=== PATIENT | female | born 1945 | race Caucasian/White ===

== ENCOUNTER 2018-09-25 06:14 | Emergency (ER) | payer MEDICARE, OTHER ==
[~2018-09-25] VITALS: Ht 177.8 cm; Wt 100.9 kg
[~2018-09-25 06:14] MED LIST: FOLIC ACID; GLYBURIDE; METFORMIN; OMEPRAZOLE; PIOGLITAZONE; TIZA2CAP PO; [UNRECOGNIZED DRUG - CODE] BU
[2018-09-25 06:20] VITALS: Ht 177.8 cm; Wt 100.9 kg
[2018-09-25] MEDS ORDERED: HYDROmorphONE 1 MG/ML SYG IV STA (06:24)
[2018-09-25] MEDS ORDERED: ONDANSETRON 4 MG INJ IV STA (06:24)
[2018-09-25] MEDS ORDERED: SOD CHLORIDE 0.9% 500 ML IV STA (06:24)
[2018-09-25] MEDS ORDERED: IBUPROFEN 800 MG TAB PO ONE (06:30)
[2018-09-25] MEDS ORDERED: CYCLOBENZAPRINE 10 MG TAB PO ONE (06:30)
[2018-09-25] MEDS ORDERED: CYCL10TA7 PO (08:46)
[2018-09-25 09:20] VITALS: BP 125/76; PULSE 59; RESP 18
--- NOTE | 2018-09-25 16:29 | ERD ---
ER Documentation Chief Complaint Chief Complaint [id number],from home,R knee pain & spasm HPI This is a 73-year-old female presented to the emergency department sudden onset of severe right knee pain and spasming of her right knee. The patient indicates this is happened multiple times in the past. Up to go to the bathroom when she felt a sudden popping sensation in her right knee. She was unable to stand up due to the severe pain. She has a history of arthritis. 9 1 was called and it helped to assist the patient to the gurney and indicated there is no obvious bony deformity. The patient stated the pain in her right knee was 10 out of 10. She did not experience any calf tenderness. She had no spasms in her calf. She has no shortness of breath at rest or exertion. She denies any prolonged immobilization. ROS All systems reviewed and are negative except as per history of present illness. Medications Home Meds Active Scripts Cyclobenzaprine Hcl* (Cyclobenzaprine Hcl*) 10 Mg Tablet, 10 MG PO TID PRN for MUSCLE SPASMS, #15 TAB Prov:MCKENNA SANTOS MD 09/25/18 Reported Medications [glyburide,actos,metformin,folic acid,prilosec] No Conflict Check 02/17/12 Nabumetone (Relafen) 500 Mg Tablet, 1000 MG BU bid 02/17/12 Tizanidine Hcl* (Zanaflex*) 2 Mg Capsule, 2 MG PO tid 02/17/12 Allergies Allergies: Coded Allergies: Jflimmw-Dpr-Ytl Reductase Inhibitor (Verified Allergy, Unknown, 09/25/18) codeine (Verified Allergy, Unknown, 09/25/18) PMhx/Soc History of Surgery: Yes (tonsilectomy,makayla,ovary removed) Anesthesia Reaction: Yes Hx Neurological Disorder: No Hx Respiratory Disorders: No Hx Cardiac Disorders: Yes (htn) Hx Psychiatric Problems: No Hx Miscellaneous Medical Probl: No Hx Alcohol Use: No Hx Substance Use: No Hx Tobacco Use: No Smoking Status: Never smoker Physical Exam Vitals Vital Signs Date Temp Pulse Resp B/P (MAP) Pulse Ox O2 O2 Flow FiO2 Time Delivery Rate 09/25/18 59 18 125/76 96 Room Air 09:20 (92) 09/25/18 64 18 143/60 94 Room Air 08:18 (87) 09/25/18 99.5 68 18 175/90 96 06:20 (118) Physical Exam Constitutional:Well-developed. Well-nourished. Respiratory: Not using accessory muscles of respiration.Lungs were clear to auscultation bilaterally. No rhonchi. No rales. No wheezing. Cardiovascular: Regular rate regular rhythm.No murmurs. No rubs were appreciated.S1, S2 normal. Distal pulses are palpable 2+ bilaterally Muscle skeletal: Patient had tenderness of the right patella. Valgus and varus stress test in the right knee was unable to be obtained as the patient was in a significant amount discomfort and experiencing pain with passive extension of the right knee. No calf tenderness negative Homans sign on the right. No asymmetrical swelling of the bilateral lower extremities. Patient unable to bear weight due to severity of pain. No tenderness over the right fibular head. No tenderness or obvious bony deformities of the right femur. Skin: No petechia, no purpura. No lesions on the palms or the soles of the feet. No maculopapular rash. NEURO: Patient was alert, awake, orientated x3.No facial droop. Gait not observed due to severity of pain.Speech had regular rate and rhythm. No focal neurological deficits. Results 24 hrs Current Medications Medications Dose Sig/Felix Start Time Status Last (Trade) Ordered Route PRN Stop Time Admin Dose Reason Admin Sodium 500 ml @ Q1H STAT 09/25/18 DC 09/25/18 Chloride 500 mls/hr IV 06:24 06:43 09/25/18 07:23 1 mg ONCE STAT 09/25/18 DC 09/25/18 Hydromorphone IV 06:24 06:45 HCl 09/25/18 06:30 (Dilaudid) Ondansetron 4 mg ONCE STAT 09/25/18 DC 09/25/18 HCl (Zofran IV 06:24 06:45 Inj) 09/25/18 06:30 10 mg ONCE ONCE 09/25/18 DC 09/25/18 Cyclobenzapri PO 06:30 06:45 ne HCl 09/25/18 06:31 (Flexeril) Ibuprofen 800 mg ONCE ONCE 09/25/18 DC 09/25/18 (Motrin) PO 06:30 06:45 09/25/18 06:31 Procedures/MDM This is a 73-year-old female that presented to the emergency department with right knee pain. Utilizing the auto ankle knee rules radiographic imaging was obtained. There is no evidence of fractures this was reviewed by myself. However the patient did have moderate tricompartmental joint arthrosis. The patient was given IV Dilaudid and Toradol for analgesia control. She was also given a muscle relaxant of Flexeril. Afterwards the patient's pain is significantly improved. I was able to perform valgus and varus stress testing without any difficulty. She was now able to ambulate. The patient no physical exam findings to suggest arterial or venous insufficiency. There is no signs of necrotizing fasciitis. I did feel the patient be safely discharged home but indicated she would benefit from getting an outpatient MRI of her knee. The patient was discharged home in fair condition. They were instructed to return to the emergency department at any time if there was any worsening of their condition. The patient stated they would follow up with their PCP in the next 24-48 hours to initiate a suitable medication regimen under the care of their PCP as well as to allow their PCP to monitor any drug reactions. The patient was discharged home with prescriptions after they gave informed consent to the new medication. They were also fully informed by myself on the adverse effects and adverse drug interactions in order to provide adequate safeguards to prevent possible adverse reactions to medications. Departure Diagnosis: Primary Impression: Knee pain Chronicity: acute Laterality: right Qualified Codes: M25.561 - Pain in right knee Additional Impression: Muscle spasm Condition: Fair Patient Instructions: Knee Sprain, Muscle Spasm Referrals: MIRZA WORTHINGTON MD (PCP) MCKENNA SANTOS MD Sep 25, 2018 16:26
== END 2018-09-25 09:20 | disposition home or self-care (01) ==
LOC: E/R 06:14
DX: M25.561 Pain in right knee (principal); M62.831 Muscle spasm of calf; I10 Essential (primary) hypertension
CPT/HCPCS: 73562; 96374; 96375; 99284; J1170; J2405; J7040

== ENCOUNTER 2018-10-22 21:16 | Emergency (ER) | payer MEDICARE, OTHER ==
[~2018-10-22] VITALS: Wt 100.0 kg
[~2018-10-22 21:16] MED LIST changes: +CYCL10TA7 PO
[2018-10-22] MEDS ORDERED: LORAZEPAM 2 MG INJ IM ONE (23:00)
[2018-10-22] MEDS ORDERED: CYCLOBENZAPRINE 10 MG TAB PO ONE (23:00)
[2018-10-22] MEDS ORDERED: IBUPROFEN 800 MG TAB PO ONE (23:00)
[2018-10-23] MEDS ORDERED: ONDANSETRON 4 MG INJ IV STA (00:15)
[2018-10-23] MEDS ORDERED: morphine 4 MG/ML VIAL IV STA (00:15)
[2018-10-23] MEDS ORDERED: morphine 4 MG/ML VIAL IM STA ×2 (00:27→01:28)
[2018-10-23] MEDS ORDERED: ONDANSETRON (ODT) 4 MG TAB ODT STA (00:27)
[2018-10-23] MEDS ORDERED: CYCL10TA7 PO (02:11)
--- NOTE | 2018-10-23 02:30 | ERD ---
ER Documentation Chief Complaint Chief Complaint r knee pain from knee giving out no deformity , onset 1400 today. HPI This is a very pleasant 73-year-old female with history of diabetes presents with sudden onset right knee pain since this morning. Patient states she was standing from a sitting position when she heard a snap in her right knee. There was no fall. Patient states she has been unable to fully extend her knee since then. She has full flexion. She denies any lower extremity numbness or tingling. Denies any other trauma. She was seen here a few months ago for similar complaints and diagnosed with muscle spasm. She states the symptoms are very similar. She states she is scheduled for an outpatient CT/MRI of her right knee next week. She has been taking the cyclobenzaprine that was prescribed to her previous visit with no relief. ROS All systems reviewed and are negative except as per history of present illness. Medications Home Meds Active Scripts Cyclobenzaprine Hcl* (Cyclobenzaprine Hcl*) 10 Mg Tablet, 10 MG PO TID PRN for MUSCLE SPASMS, #15 TAB Prov:TITO MARTINEZ PA-C 10/23/18 Reported Medications [glyburide,actos,metformin,folic acid,prilosec] No Conflict Check 02/17/12 Nabumetone (Relafen) 500 Mg Tablet, 1000 MG BU bid 02/17/12 Tizanidine Hcl* (Zanaflex*) 2 Mg Capsule, 2 MG PO tid 02/17/12 Allergies Allergies: Coded Allergies: Djddryr-Tbh-Qbo Reductase Inhibitor (Verified Allergy, Unknown, 09/25/18) codeine (Verified Allergy, Unknown, 09/25/18) PMhx/Soc History of Surgery: Yes (tonsilectomy,makayla,ovary removed) Anesthesia Reaction: Yes Hx Neurological Disorder: No Hx Respiratory Disorders: No Hx Cardiac Disorders: Yes (htn) Hx Psychiatric Problems: No Hx Miscellaneous Medical Probl: No Hx Alcohol Use: No Hx Substance Use: No Hx Tobacco Use: No Smoking Status: Never smoker Physical Exam Vitals Vital Signs Date Temp Pulse Resp B/P (MAP) Pulse Ox O2 O2 Flow FiO2 Time Delivery Rate 10/23/18 98.5 70 17 135/66 94 Room Air 00:51 (89) 10/22/18 98.0 84 20 170/81 98 21:17 (110) Physical Exam Const: No acute distress. + Sitting in wheelchair Head: Atraumatic Eyes: Normal Conjunctiva ENT: Normal External Ears, Nose and Mouth. Skin: No petechiae or rashes Ext: Lower Extremity - right Skin: No laceration Compartments: Soft Motor: + Unable to extend knee Sensation: Intact to light touch FDWS/MF/LF/P surfaces. Bones: + TTP to superior aspect of knee Joints: No effusion or laxity Pulses/Perfusion: 2+ DP, Capillary refill < 2 seconds Neur: Awake and alert Psych: Normal Mood and Affect Results 24 hrs Current Medications Medications Dose Sig/Felix Start Time Status Last (Trade) Ordered Route PRN Stop Time Admin Dose Reason Admin Ibuprofen 800 mg ONCE ONCE 10/22/18 DC 10/22/18 (Motrin) PO 23:00 22:56 10/22/18 23:01 20 mg ONCE ONCE 10/22/18 DC 10/22/18 Cyclobenzapri PO 23:00 22:57 ne HCl 10/22/18 23:01 (Flexeril) Lorazepam 0.5 mg ONCE ONCE 10/22/18 DC 10/22/18 (Ativan) IM 23:00 22:55 10/22/18 23:01 Morphine 4 mg ONCE STAT 10/23/18 DC Sulfate IV 00:15 (morphine) 10/23/18 00:29 Ondansetron 4 mg ONCE STAT 10/23/18 DC HCl (Zofran IV 00:15 Inj) 10/23/18 00:29 Morphine 4 mg ONCE STAT 10/23/18 DC 10/23/18 Sulfate IM 00:27 00:45 (morphine) 10/23/18 00:29 Ondansetron 4 mg ONCE STAT 10/23/18 DC 10/23/18 HCl (Zofran ODT 00:27 00:44 Odt) 10/23/18 00:29 Morphine 4 mg ONCE STAT 10/23/18 DC 10/23/18 Sulfate IM 01:28 01:53 (morphine) 10/23/18 01:29 Procedures/MDM LABS & DIAGNOSTIC IMAGING: PROCEDURE: XR Knee. CLINICAL INDICATION: Pain and limited range of motion. The patient cannot extend in the right knee TECHNIQUE: AP, oblique and cross-table lateral views of the right knee were obtained. COMPARISON: 09/25/2018 FINDINGS: Mineralization is within normal limits. No fracture or osseous lesion is identified. There is moderate tricompartmental osteoarthrosis. No joint effusion is seen and the soft tissues are unremarkable. IMPRESSION: Moderate tricompartmental osteoarthrosis without acute abnormality of the right knee or interval change from 09/25/2018. ED COURSE: The patient was given Morphine x 2, Zofran, Ibuprofen, Baclofen The medication was well tolerated and the patient had market improvement in symptoms. The patient remained stable throughout ED course. MEDICAL DECISION MAKING: This a very pleasant 73-year-old female presents with complaints of atraumatic right knee pain. Her x-rays negative for any acute fracture dislocation. X-ray does note significant osteoarthritis of the right knee, which could also be causing some of her pain. Other differentials include muscle spasm or muscle strain. There is no evidence of septic arthritis or osteomyelitis. Patient was seen here a few months ago with similar symptoms requiring IV Dilaudid for pain control. Patient was given morphine and muscle relaxants here. She had full range of motion of her knee afterwards. She remained neurovascularly intact on physical exam, I have low suspicion for neurovascular injury. She was told to keep her appointment for CT of her knee next week. She was discharged home with muscle relaxants, no further pain medications are prescribed. Strict return precautions were discussed. PRESCRIPTIONS: Cyclobenzaprine SPECIALIST FOLLOW UP RECOMMENDED: None Patient has been advised to follow up with primary care in 1-2 days. Blood Pressure Assessment: Patient's blood pressure was elevated (>120/80) but appears stable without evidence of hypertension emergency or urgency. The patie nt was counseled about the risks of hypertension and urged to pursue outpatient monitoring and therapy within a week with their primary care physician. Departure Diagnosis: Primary Impression: Muscle spasm Additional Impression: Osteoarthritis Osteoarthritis location: knee Osteoarthritis type: unspecified Laterality: right Qualified Codes: M17.11 - Unilateral primary osteoarthritis, right knee Condition: Stable Patient Instructions: Muscle Spasm, Osteoarthritis: Coping with Pain Additional Instructions: Take baclofen 3 times a day for the next 3 days. Also recommend warm heat pads to help relax the muscles around her knee as well. Follow-up for your CT as scheduled. Return here for any new or worsening symptoms. Thank you for being so patient with this today. TITO MARTINEZ PA-C Oct 23, 2018 02:26
[2018-10-23 02:31] VITALS: BP 117/63; PULSE 62; RESP 18
== END 2018-10-23 02:31 | disposition home or self-care (01) ==
LOC: FTE 21:16
DX: M62.838 Other muscle spasm (principal); M17.11 Unilateral primary osteoarthritis, right knee; I10 Essential (primary) hypertension; E11.9 Type 2 diabetes mellitus without complications; Z79.84 Long term (current) use of oral hypoglycemic drugs
CPT/HCPCS: 73562; 96372; 99284; J2060; J2270

== ENCOUNTER → 2018-10-26 | Outpatient (CLI) | payer MEDICARE, OTHER ==
[~2018-10-26] MED LIST changes: +HYDR-4011 PO; +IBUP-1542 PO; +TRAM50TA2 PO
== END | disposition home or self-care (01) ==
LOC: C/S 09:55
PROVIDERS: ATTEND Internal Medicine
DX: M54.5 Low back pain (principal); M54.16 Radiculopathy, lumbar region
CPT/HCPCS: 72131

== ENCOUNTER 2018-10-28 18:50 | Emergency (ER) | payer MEDICARE, OTHER ==
[~2018-10-28] VITALS: Ht 177.8 cm; Wt 100.9 kg
[~2018-10-28 18:50] MED LIST changes: -HYDR-4011 PO; -HYDROmorphONE 1 MG/ML SYG IV STA; -IBUP-1542 PO; -KETOROLAC 15 MG INJ IV STA; -ONDANSETRON 4 MG INJ IV STA; -SOD CHLORIDE 0.9% 1,000 ML IV STA; -TRAM50TA2 PO
[2018-10-28 19:07] VITALS: Ht 177.8 cm; Wt 100.9 kg
[2018-10-28] MEDS ORDERED: HYDROmorphONE 1 MG/ML SYG IV STA (21:37)
[2018-10-28] MEDS ORDERED: ONDANSETRON 4 MG INJ IV STA (21:37)
[2018-10-28] MEDS ORDERED: SOD CHLORIDE 0.9% 1,000 ML IV STA (21:37)
[2018-10-28] MEDS ORDERED: DIAZEPAM 5 MG TAB PO ONE (22:00)
[2018-10-28 23:06] VITALS: BP 127/60; PULSE 60; RESP 23
--- NOTE | 2018-10-28 23:19 | ERD ---
ER Documentation Chief Complaint Chief Complaint R leg spasms despite Morphine today;might need muscle relaxant as per pt HPI This is a 73-year-old female that has recurrent spasms of her right lower extremity. She indicates that she was seen earlier today in the emergency department and treated for spasms of the right lower extremity. Her primary care physician Dr. Christy did further evaluate the patient's symptoms by obtaining a CT scan of the thoracic and lumbar spine to rule out for radiculopathy. The patient states however she denies any back pain. No saddle anesthesia. No numbness or tingling of her lower extremity. She has been seen and evaluated by myself previously for similar symptoms. Venous duplex ultrasounds of the lower extremity were negative for deep vein thrombosis. She denies any shortness of breath. No fevers or shaking or chills. ROS All systems reviewed and are negative except as per history of present illness. Medications Home Meds Active Scripts Cyclobenzaprine Hcl* (Cyclobenzaprine Hcl*) 10 Mg Tablet, 10 MG PO TID, #20 TAB Prov:MEL BISHOP PA-C 10/28/18 Cyclobenzaprine Hcl* (Cyclobenzaprine Hcl*) 10 Mg Tablet, 10 MG PO TID PRN for MUSCLE SPASMS, #15 TAB Prov:TITO MARTINEZ PA-C 10/23/18 Reported Medications [glyburide,actos,metformin,folic acid,prilosec] No Conflict Check 02/17/12 Nabumetone (Relafen) 500 Mg Tablet, 1000 MG BU bid 02/17/12 Tizanidine Hcl* (Zanaflex*) 2 Mg Capsule, 2 MG PO tid 02/17/12 Allergies Allergies: Coded Allergies: Sswodau-Ibt-Acv Reductase Inhibitor (Verified Allergy, Unknown, 09/25/18) codeine (Verified Allergy, Unknown, 09/25/18) PMhx/Soc History of Surgery: Yes (tonsilectomy,makayla,ovary removed) Anesthesia Reaction: Yes Hx Neurological Disorder: No Hx Respiratory Disorders: No Hx Cardiac Disorders: Yes (htn) Hx Psychiatric Problems: No Hx Miscellaneous Medical Probl: No Hx Alcohol Use: No Hx Substance Use: No Hx Tobacco Use: No Smoking Status: Never smoker Physical Exam Vitals Vital Signs Date Temp Pulse Resp B/P (MAP) Pulse Ox O2 O2 Flow FiO2 Time Delivery Rate 10/28/18 60 23 127/60 99 Room Air 23:06 (82) 10/28/18 97.6 69 18 127/77 96 19:07 (94) Physical Exam Constitutional:Well-developed. Well-nourished. Respiratory: Not using accessory muscles of respiration.Lungs were clear to auscultation bilaterally. No rhonchi. No rales. No wheezing. Cardiovascular: Regular rate regular rhythm.No murmurs. No rubs were appreciated.S1, S2 normal. Distal pulses are palpable 2+ bilaterally. Muscle skeletal: Severe tenderness in the posterior aspect of the right knee. Patient was holding right lower extremity in slight flexion with 45 degree angle. No effusion of the right knee. Valgus and varus stress testing the right knee was unable to be obtained due to severe pain. No asymmetrical calf tenderness or swelling. Skin: No petechia, no purpura. No lesions on the palms or the soles of the feet. No maculopapular rash. NEURO: Patient was alert, awake, orientated x3.No facial droop. Gait not observed as patient was into much discomfort to ambulate speech had regular rate and rhythm. No focal neurological deficits. Results 24 hrs Current Medications Medications Dose Sig/Felix Start Time Status Last (Trade) Ordered Route PRN Stop Time Admin Dose Reason Admin Sodium 1,000 ml @ Q1H STAT 10/28/18 DC 10/28/18 Chloride 1,000 mls/hr IV 21:37 21:49 10/28/18 22:36 1 mg ONCE STAT 10/28/18 DC 10/28/18 Hydromorphone IV 21:37 21:49 HCl 10/28/18 21:43 (Dilaudid) Ondansetron 4 mg ONCE STAT 10/28/18 DC 10/28/18 HCl (Zofran IV 21:37 21:48 Inj) 10/28/18 21:43 Diazepam 5 mg ONCE ONCE 10/28/18 DC 10/28/18 (Valium) PO 22:00 21:48 10/28/18 22:01 Procedures/MDM This is a 73-year-old female is seen deviously for similar complaints. The patient has recurrent spasms of her right lower extremity. Her states that he is unable to get her to ambulate due to the pain and has had to call 911 in the past for this. The patient had IV access established. She was given muscle relaxants and analgesic medication. Afterwards I was able to stretch out the right lower extremity to perform valgus and varus stress testing. The patient is now able to ambulate. Her symptoms had significantly improved. She felt comfortable being discharged home. I did feel this was a result of a muscl e spasm versus a more acute life-threatening etiology such as arterial venous insufficiency. The patient was discharged home in fair condition. They were instructed to return to the emergency department at any time if there was any worsening of their condition. The patient stated they would follow up with their PCP in the next 24-48 hours to initiate a suitable medication regimen under the care of their PCP as well as to allow their PCP to monitor any drug reactions. The patient was discharged home with prescriptions after they gave informed consent to the new medication. They were also fully informed by myself on the adverse effects and adverse drug interactions in order to provide adequate safeguards to prevent possible adverse reactions to medications. Departure Diagnosis: Primary Impression: Muscle spasm Condition: Stable Patient Instructions: Muscle Spasm Referrals: MIRZA CHRISTY MD (PCP) MCKENNA SANTOS MD Oct 28, 2018 23:19
[2018-10-31] MEDS ORDERED: IBUP-1542 PO (15:14)
[2018-10-31] MEDS ORDERED: TRAM50TA2 PO (15:14)
[2018-10-31] MEDS ORDERED: HYDR-4011 PO (21:24)
== END 2018-10-28 21:10 | disposition home or self-care (01) ==
LOC: E/R 18:50
DX: M62.838 Other muscle spasm (principal); I10 Essential (primary) hypertension
CPT/HCPCS: 96374; 96375; 99284; J1170; J2405; J7030; J1885

== ENCOUNTER → 2018-10-28 | Emergency (ER) | payer MEDICARE, OTHER ==
[~2018-10-28] VITALS: Wt 105.0 kg
[~2018-10-28] MED LIST changes: +HYDROmorphONE 1 MG/ML SYG IV STA; +KETOROLAC 15 MG INJ IV STA; +ONDANSETRON 4 MG INJ IV STA; +SOD CHLORIDE 0.9% 1,000 ML IV STA
[2018-10-28 15:15] VITALS: BP 134/71; PULSE 85; RESP 18
--- NOTE | 2018-10-28 17:35 | ERD ---
ER Documentation Chief Complaint Chief Complaint RIGHT LEG MUSCLE SPASM HPI 73-year-old female is here with muscle spasms in the right lower extremity right around her knee. She is been seen for this a few times in the past month. She states that it typically feels much better after some pain medication and a musc le relaxer. She was taking cyclobenzaprine at home which she states was helping but she ran out so she would also like a refill of this medication. She also just had a CT scan done here on the and would like to know about the results ROS All systems reviewed and are negative except as per history of present illness. Medications Home Meds Active Scripts Cyclobenzaprine Hcl* (Cyclobenzaprine Hcl*) 10 Mg Tablet, 10 MG PO TID, #20 TAB Prov:MEL BISHOP PA-C 10/28/18 Cyclobenzaprine Hcl* (Cyclobenzaprine Hcl*) 10 Mg Tablet, 10 MG PO TID PRN for MUSCLE SPASMS, #15 TAB Prov:TITO MARTINEZ PA-C 10/23/18 Reported Medications [glyburide,actos,metformin,folic acid,prilosec] No Conflict Check 02/17/12 Nabumetone (Relafen) 500 Mg Tablet, 1000 MG BU bid 02/17/12 Tizanidine Hcl* (Zanaflex*) 2 Mg Capsule, 2 MG PO tid 02/17/12 Allergies Allergies: Coded Allergies: Toticnx-Arl-Qsp Reductase Inhibitor (Verified Allergy, Unknown, 09/25/18) codeine (Verified Allergy, Unknown, 09/25/18) PMhx/Soc History of Surgery: Yes (tonsilectomy,makayla,ovary removed) Anesthesia Reaction: Yes Hx Neurological Disorder: No Hx Respiratory Disorders: No Hx Cardiac Disorders: Yes (htn) Hx Psychiatric Problems: No Hx Miscellaneous Medical Probl: No Hx Alcohol Use: No Hx Substance Use: No Hx Tobacco Use: No Smoking Status: Never smoker FmHx Family History: diabetes Physical Exam Vitals Vital Signs Date Temp Pulse Resp B/P (MAP) Pulse Ox O2 O2 Flow FiO2 Time Delivery Rate 10/28/18 98.0 85 18 134/71 99 15:15 (92) Physical Exam Const: No acute distress Head: Atraumatic Eyes: Normal Conjunctiva ENT: Normal External Ears, Nose and Mouth. Neck: Full range of motion. No meningismus. Resp: Clear to auscultation bilaterally Cardio: Regular rate and rhythm, no murmurs Lower Extremity -right: Skin: No laceration Compartments: Soft Motor: Unable to fully extend right knee, full range of motion in all other directions Sensation: Intact to light touch FDWS/MF/LF/P surfaces. Bones: Nontender pelvis/knee/proximal tibia/ malleoli/foot Joints: No effusion or laxity Pulses/Perfusion: 2+ DP, Capillary refill < 2 seconds Results 24 hrs Current Medications Medications Dose Sig/Felix Start Time Status Last (Trade) Ordered Route PRN Stop Time Admin Dose Reason Admin Sodium 1,000 ml @ Q1H STAT 10/28/18 10/28/18 Chloride 1,000 mls/hr IV 16:44 17:12 10/28/18 17:43 1 mg ONCE STAT 10/28/18 DC 10/28/18 Hydromorphone IV 16:44 17:12 HCl 10/28/18 16:46 (Dilaudid) Ondansetron 4 mg ONCE STAT 10/28/18 DC 10/28/18 HCl (Zofran IV 16:44 17:12 Inj) 10/28/18 16:46 Ketorolac 15 mg ONCE STAT 10/28/18 DC 10/28/18 Tromethamine IV 16:44 17:12 (Toradol) 10/28/18 16:46 Procedures/MDM Patient is here for muscle spasms in her right lower extremity. She was given IV fluids, Toradol, and Dilaudid with significant improvement. She was discharged with cyclobenzaprine. She was given copy of her CT results which show degenerative changes. Patient counseled regarding my diagnostic impression and care plan. Prior to discharge all questions answered. Pt agrees with treatment plan and understands strict return precautions. Pt is instructed to follow up with primary care provider within 24-48 hours. Precautionary instructions provided including instructions to return to the ER if not impr oving or for any worsening or changing symptoms or concerns. Departure Diagnosis: Primary Impression: Muscle spasm Condition: Stable Patient Instructions: Leg Spasm Additional Instructions: Call your primary care doctor TOMORROW for an appointment during the next 1-2 days.See the doctor sooner or return here if your condition worsens before your appointment time. MEL BISHOP PA-C Oct 28, 2018 17:35
== END | disposition home or self-care (01) ==
LOC: FTE 14:50
DX: M62.838 Other muscle spasm (principal); I10 Essential (primary) hypertension
CPT/HCPCS: 96374; 96375; 99284; J1170; J1885; J2405; J7030

== ENCOUNTER → 2018-10-31 | Emergency (ER) | payer MEDICARE, OTHER ==
[~2018-10-31] VITALS: Ht 177.8 cm; Wt 100.9 kg
[~2018-10-31] MED LIST changes: +DIAZEPAM 5 MG TAB PO ONE; +HYDR-4011 PO; +HYDROCODONE/APAP (10/325) TAB PO ONE; +HYDROmorphONE 2 MG/ML SYG IM STA; +IBUP-1542 PO; +TRAM50TA2 PO
[2018-10-31 13:24] VITALS: Ht 177.8 cm; Wt 100.9 kg
--- NOTE | 2018-10-31 13:30 | EN ---
Date/Time of Note Date/Time of Note DATE: 10/31/18 TIME: 13:28 ER Progress Note 73-year-old female with history of right lower extremity muscle spasm and difficulty extending right lower extremity. Patient had a recent readmission to ER for similar symptoms and requesting similar treatment. ED 2 appropriate. KEANU CHAIREZ MD Oct 31, 2018 13:30
--- NOTE | 2018-10-31 14:03 | ERD ---
ER Documentation Chief Complaint Chief Complaint right leg pain x 3 days, unable to straighten out leg HPI 73-year-old female with past medical history of hypertension, diabetes, hyperlipidemia who presents to ED with complaint of right lower extremity pain over the past 3 days. States she been having pain which is limited ambulation, unable to straighten right leg. Patient had been to this ED multiple times for similar complaints including most recently on October 28. At that time patient treated with IV pain medications, Dilaudid and Valium. Prescribe cyclobenzapr ine on discharge. Has been taking Advil for symptoms as well as cyclobenzaprine which she says does not help much with symptoms. She otherwise denies recent injuries, saddle anesthesia, urinary or bowel incontinence, lower extremity weakness or paresthesias. Has been seen by her PMD for similar problems, had a CT last month still awaiting results. She has not been referred first specialist evaluation and nor has she had MRI. She denies prior history of trauma, surgeries to affected limb lower back. At time evaluation patient in wheelchair unable to stand and take steps during examination in [place] to pain. ROS All systems reviewed and are negative except as per history of present illness. Medications Home Meds Active Scripts Tramadol HCl (Tramadol HCl) 50 Mg Tablet, 50 MG PO Q4 PRN for PAIN, #20 TAB Prov:JOHNY REMY PA-C 10/31/18 Ibuprofen* (Motrin*) 600 Mg Tab, 600 MG PO Q6, #30 TAB Prov:JOHNY REMY PA-C 10/31/18 Cyclobenzaprine Hcl* (Cyclobenzaprine Hcl*) 10 Mg Tablet, 10 MG PO TID, #20 TAB Prov:MEL BISHOP PA-C 10/28/18 Cyclobenzaprine Hcl* (Cyclobenzaprine Hcl*) 10 Mg Tablet, 10 MG PO TID PRN for MUSCLE SPASMS, #15 TAB Prov:TITO MARTINEZ PA-C 10/23/18 Reported Medications [glyburide,actos,metformin,folic acid,prilosec] No Conflict Check 02/17/12 Nabumetone (Relafen) 500 Mg Tablet, 1000 MG BU bid 02/17/12 Tizanidine Hcl* (Zanaflex*) 2 Mg Capsule, 2 MG PO tid 02/17/12 Allergies Allergies: Coded Allergies: Poultry (Verified Allergy, Unknown, abdominal flu, 10/31/18) Nfsnajd-Sle-Pnr Reductase Inhibitor (Verified Allergy, Unknown, 09/25/18) codeine (Verified Allergy, Unknown, 09/25/18) PMhx/Soc History of Surgery: Yes (tonsilectomy,makayla,ovary removed) Anesthesia Reaction: Yes Hx Neurological Disorder: No Hx Respiratory Disorders: No Hx Cardiac Disorders: Yes (htn) Hx Psychiatric Problems: No Hx Miscellaneous Medical Probl: No Hx Alcohol Use: No Hx Substance Use: No Hx Tobacco Use: No FmHx Family History: diabetes Physical Exam Vitals Vital Signs Date Temp Pulse Resp B/P (MAP) Pulse Ox O2 O2 Flow FiO2 Time Delivery Rate 10/31/18 98.5 70 18 164/77 96 13:24 (106) Physical Exam Const: No acute distress Head: Atraumatic Eyes: Normal Conjunctiva ENT: Normal External Ears, Nose and Mouth. Neck: Full range of motion. No meningismus. Resp: Clear to auscultation bilaterally Cardio: Regular rate and rhythm, no murmurs Abd: Soft, non tender, non distended. Normal bowel sounds Skin: No petechiae or rashes Back: No midline or flank tenderness Ext: No cyanosis, or edema, no edema signs of injury at right lower extremity, pain limiting exam, knee joint unremarkable, no swelling, patient unable to extend knee into full extension, good distal perfusion, pulses 2+ Neur: Awake and alert Psych: Normal Mood and Affect Results 24 hrs Current Medications Medications Dose Sig/Felix Start Time Status Last (Trade) Ordered Route PRN Stop Time Admin Dose Reason Admin Diazepam 2.5 mg ONCE ONCE 10/31/18 DC 10/31/18 (Valium) PO 14:30 14:26 10/31/18 14:31 2 mg ONCE STAT 10/31/18 DC 10/31/18 Hydromorphone IM 14:16 14:25 HCl 10/31/18 14:17 (Dilaudid) 1 tab ONCE ONCE 10/31/18 DC Acetaminophen PO 15:30 / 10/31/18 15:31 Hydrocodone Bitart ([place] ()) Procedures/MDM 73-year-old female presents with complaint of right lower extremity pain. This appears to be a chronic issue and I have low suspicion for acute process warranting further emergent care or work-up at this time. She does not exhibit any red flag symptoms which are concerning. She likely will need referral from PMD for specialist evaluation, possible pain management. Discharge with recommendation to follow-up closely with PMD. Take medications as prescribed. Strict return precautions explained in detail. ED course: No indication for imaging at this time Dilaudid p.o., Valium On reassessment patient with improvement in pain symptoms, able to extend affected limb, take multiple steps in the ED with less discomfort During ED stay patient has been went to see her primary care doctor who prescribed Medrol Dosepak and recommended patient for MRI DISPOSITION PLAN: We discussed follow up with the patient's primary care doctor within 24 to 48 hours. Patient counseled regarding my diagnostic impression and care plan. Prior to discharge all questions answered. Pt agrees with treatment plan and understands strict return precautions. Precautionary instructions provided including instructions to return to the ER if not improving or for any worsening or changing symptoms or concerns. Disclaimer: Inadvertent spelling and grammatical errors are likely due to EHR/dictation software use and do not reflect on the overall quality of patient care. Also, please note that the electronic time recorded on this note does not necessarily reflect the actual time of the patient encounter. Departure Diagnosis: Primary Impression: Pain of right leg Condition: Stable JOHNY REMY PA-C Oct 31, 2018 14:03
[2018-10-31 15:49] VITALS: BP 126/61; PULSE 58; RESP 18
== END | disposition home or self-care (01) ==
LOC: FTE 13:19
DX: M79.661 Pain in right lower leg (principal); I10 Essential (primary) hypertension; E11.9 Type 2 diabetes mellitus without complications
CPT/HCPCS: 96372; 99284; J1170